=== PATIENT | male | born 1995 | race Caucasian/White ===

== ENCOUNTER 2018-07-29 17:06 | Emergency (ER) | payer BC ==
[~2018-07-29] VITALS: Ht 180.3 cm; Wt 68.0 kg
[2018-07-29 17:35] LABS: INFLUENZA B ANTIGEN None Detected (None Detect)
[2018-07-29] MEDS ORDERED: ONDANSETRON HCL4 M2 PO (17:47)
[2018-07-29] MEDS ORDERED: OSELB75 PO (17:47)
[2018-07-29 17:59] VITALS: BP 144/70
== END 2018-07-29 18:01 | disposition home or self-care (01) ==
LOC: M.ERS 17:06
PROVIDERS: Nurse Practitioner Family
DX: J10.1 Influenza due to other identified influenza virus with other respiratory manifestations (principal)